=== PATIENT | male | born 1975 | race African-American/Black ===

== ENCOUNTER → 2018-12-05 | Outpatient (CLI) | payer MEDICARE, OTHER ==
--- NOTE | 2018-12-05 11:16 | RADIOLOGY REPORT (SQ) ---
EXAM DESCRIPTION: MRI LUMBAR SPINE WITHOUT COMPLETED DATE/TIME: 12/05/2018 9:19 am REASON FOR STUDY: M54.16 RADICULOPATHY, LUMBAR REGION M54.16 RADICULOPATHY, LUMBAR REGION COMPARISON: None. TECHNIQUE: Sagittal and Axial imaging includes T1, T2, STIR and gradient echo sequences. Coronal T2/ HASTE imaging. LIMITATIONS: None. FINDINGS: VISUALIZED UPPER ABDOMEN: Limited evaluation. No acute or suspicious findings suggested. SEGMENTATION: There are 5 lumbar-type vertebral bodies. There is no transitional anatomy at the lumb osacral junction. ALIGNMENT: Anatomic. VERTEBRAE: The lumbar vertebral body heights are preserved. BONE MARROW: There are Modic type 2 endplate changes at the inferior endplate of L5 and superior endp late of S1. DISC SIGNAL: The L4-L5 and L5 S1 intervertebral disc spaces are narrowed and desiccated. POSTERIOR ELEMENTS: Intact. There is no pars interarticularis defect. HARDWARE: None in the spine. CORD AND CONUS: The conus medullaris terminates at the level of L1 and is normal in caliber and signa l intensity per SOFT TISSUES: There are elongated saccular structures in the retroperitoneum to the right of the abdo meg aorta at the level L1 and posterior to the aorta at the level of L2 that could represent the ci sterna chyli and dilated lymphoid ducts. L1-L2: No spinal or foraminal stenosis. L2-L3: No spinal or foraminal stenosis. L3-L4: Mild disc bulge with and extraforaminal component on the left that encroaches on the inferior aspect of the left foramen without mass effect on the nerve root. There is no spinal stenosis at the L3-L4 level. The high T2 signal within the left SI joint that suggests a component of degeneration. L4-L5: Broad-based disc bulge with a probable right lateral annular tear that encroaches on the infer ior aspect of the neuroforamina and flattens the ventral aspect of the thecal sac without mass effect on the nerve roots. There is also high T2 signal within the facet joints the suggests a component o f degeneration. L5-S1: Broad-based disc bulge that encroaches on the inferior aspect of the neuroforamina without mas s effect on the nerve roots. There is also high T2 signal within the facet joints that suggests a co mponent of degeneration. LOWER THORACIC: No stenosis. SACRUM: Intact. OTHER: No other findings. IMPRESSION: 1. Degenerative spondylosis and facet arthropathy at the lumbar spine with mild foramina l stenosis at L4-L5 and L5-S1. 2. Elongated saccular structures in the retroperitoneum to the right of the abdominal aorta at the le angely L1 and posterior to the aorta at the level of L2 that could represent the cisterna chyli and dila yeni lymphoid ducts. TECHNICAL DOCUMENTATION: JOB ID: [id number] [email or web address]- All Rights Reserved Reading location - IP/workstation name: [email or web address]
== END ==
LOC: RAD 08:39
PROVIDERS: ATTEND Physician Assistant
DX: M54.16 Radiculopathy, lumbar region (principal)
CPT/HCPCS: 72148